=== PATIENT | female | born 2000 | race African-American/Black ===

== ENCOUNTER 2018-04-20 00:36 | Observation (INO) | payer BC ==
[2018-04-20] MEDS ORDERED: Lidocaine 2% MPF 10 ML AMP (For Epidural Use) ONE (01:18)
[2018-04-20] MEDS ORDERED: Gentamicin 80 MG/2 ML VIAL ONE (02:34)
[2018-04-20] MEDS ORDERED: CEFAZOLIN 2 GM/50 ML BAG ONE (02:34)
[2018-04-20 02:40] LABS: #Basophils 0.2 thou/uL (0.0-0.2); #Eosinphils 0.1 thou/uL (0.0-0.7); #Lymphocytes 2.9 thou/uL (1.20-3.40); #Monocytes 0.7 thou/uL (0.11-0.59); #Neutrophils 8.4 thou/uL (1.40-6.50); %Basophils 1.3 % (0.0-1.0); %Eosinophils 1.2 % (0.0-10.0); %Lymphocytes 23.5 % (28.0-48.0); %Monocytes 5.9 % (0.0-4.0); %Neutrophils 68.1 % (31.0-61.0); Mean Corpuscular HGB CONC 33.7 g/dL (32.0-36.0); Mean Corpuscular Hemoglobin 28.4 pg (25.0-35.0); Mean Corpuscular Volume 84.2 fL (78.0-98.0); Platelet Count 177 thou/uL (130-400); RBC Distribution Width 11.8 % (11.5-14.5); Red Blood Cell (RBC) Count 5.27 mill/uL (4.00-5.20); White Blood Cell (WBC) Count 12.3 thou/uL (4.8-10.8)
[2018-04-20] MEDS ORDERED: Gentamicin Sulfate 80 MG in Premix Bag 1 BAG IVPB SCH (02:45)
[2018-04-20 02:47] LABS: Bilirubin Negative (Negative); Blood, Urine Negative (Negative); Clarity CLEAR (Clear); Glucose, Urine (Dipstick) Negative (Negative); Leukocyte Trace (Negative); Nitrite Negative (Negative); Protein, Urine (Dipstick) Negative (Neg-Trace); Specific Gravity, Urine 1.016 (1.002-1.036); Urobilinogen 0.2 mg/dL (0.2-1.0)
[2018-04-20 02:49] LABS: Bacteria/HPF None Seen HPF (None Seen); Hyaline Casts/LPF 0-3 HYALINE CAST LPF (0-3 Hyaline); Pathc Cast-AUWi Flag 0.14 (0-2.49); RBC/HPF 0-3 HPF (0-3); Squamous Epithelial 0-3 HPF (0-3)
[2018-04-20 03:01] LABS: BHCG - Serum Negative (NEGATIVE); Pregs Control Background? CLEAR/WHITE (CLR/WHITE); Pregs Control Bar Appear? YES (CONTROL BAR)
[2018-04-20 03:03] LABS: Anion Gap 13 mmol/L (10-20); BUN (Urea Nitrogen) 8 mg/dL (8.4-21.0); Calc. Creatinine Clearance 0 mL/min (70-130); Calcium 9.8 mg/dL (7.8-10.44); Carbon Dioxide 26 mmol/L (22-29); Chloride 104 mmol/L (98-107); Estimated GFR-MDRD 80; Glucose 104 mg/dL (70-105); Potassium 3.7 mmol/L (3.5-5.1); Sodium 139 mmol/L (136-145)
[2018-04-20] MEDS ORDERED: Ondansetron ODT 4 MG TAB SL PRN (03:48)
[2018-04-20] MEDS ORDERED: Ondansetron PF 4 MG/2 ML Vial IVP PRN (03:48)
[2018-04-20] MEDS ORDERED: Acetaminophen 325 MG TAB PO PRN (03:48)
[2018-04-20] MEDS ORDERED: Morphine 4 MG/ML VIAL SLOW IVP PRN (03:57)
[2018-04-20] MEDS ORDERED: Sodium Chloride 0.9% 1,000 ML IV SCH (04:00)
[2018-04-20] MEDS ORDERED: HYDROcodone/Acetaminophen 7.5/325 mg Tablet PO PRN (04:00)
[2018-04-20 04:48] VITALS: BMI 28.2
[2018-04-20] MEDS: Ketorolac Tromethamine 30 MG/ML VIAL IVP SCH ×3 (05:23→21:37)
[2018-04-20] MEDS: CEFAZOLIN 2 GM/50 ML-DEXTROSE 2 GM in Premix Bag 1 BAG IVPB SCH ×3 (08:44→21:37)
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
[2018-04-20] MEDS: Gentamicin Sulfate 80 MG in Premix Bag 1 BAG IVPB SCH ×2 (11:57→18:24)
[2018-04-20] MEDS ORDERED: Lidocaine 1% PF 5 ML VIAL ONE (14:46)
[2018-04-20] MEDS ORDERED: PROPOFOL 200 MG/20 ML VIAL ONE (14:46)
[2018-04-20] MEDS ORDERED: ePHEDrine/0.9% NaCl/PF SYRINGE 50 mg/10 ml ONE (14:46)
[2018-04-20] MEDS ORDERED: Dexamethasone 20 MG/5 ML VIAL ONE (14:46)
[2018-04-20] MEDS ORDERED: Ondansetron PF 4 MG/2 ML Vial ONE (14:46)
[2018-04-20] MEDS ORDERED: PHENYLEPHRINE-NS 100 MCG/ML 10 ML SYRINGE ONE (14:46)
[2018-04-20] MEDS ORDERED: Fentanyl 100 MCG/2 ML VIAL ONE ×2 (18:46→20:35)
[2018-04-20] MEDS ORDERED: Bacitracin Zinc Ointment 30 gm TUBE ONE (18:57)
[2018-04-20] MEDS ORDERED: Bupivacaine PF 0.5% 30 ML VIAL ONE (18:57)
[2018-04-20] MEDS ORDERED: Promethazine HCl 25 MG/ML VIAL IM PRN (20:27)
[2018-04-20] MEDS ORDERED: Promethazine HCl 25 MG/ML VIAL SLOW IVP PRN (20:27)
[2018-04-20] MEDS ORDERED: Ondansetron HCl/PF 4 MG/2 ML Vial IVP PRN (20:27)
[2018-04-21] MEDS: Ketorolac Tromethamine 30 MG/ML VIAL IVP SCH (05:29)
[2018-04-21 12:07] VITALS: BP 120/76; TEMP 98.3
--- NOTE | 2018-04-21 19:07 | OP ---
DATE OF PROCEDURE: 04/20/2018 ANESTHESIA: [place] anesthesia under general LMA technique augmented by 20 mL of 0.5% Marcaine block, small finger metacarpal level and 10 mL at the donor site. PREOPERATIVE DIAGNOSES: 1. Right small finger open fracture distal phalanx. 2. Right small finger nevertheless with a full thickness skin loss of 1.5 x 1 cm. POSTOPERATIVE DIAGNOSES: 1. Right small finger open fracture distal phalanx. 2. Right small finger nevertheless with a full thickness skin loss of 1.5 x 1 cm. PROCEDURES PERFORMED: 1. Debridement of material associated with open fracture. 2. Open treatment of distal phalanx fracture. 3. Nail bed repair. 4. Full-thickness skin graft from ipsilateral forearm, 1.5 x 1 cm. TOURNIQUET TIME: 27 minutes. BLOOD LOSS: 10 mL. DESCRIPTION OF PROCEDURE: After successful anesthesia listed above, the limb was prepped and draped. The patient had time-out done appropriately. We then gave the injection at small finger metacarpophalangeal joint level and over the area of the suspected graft. We measured the wound and it was approximately 1.3 cm outlined at the antecubital fossa for later closure. We then debrided the material associated with open fracture using small curette, Paz type retractor to dissect out two fragments, and we used irrigation Pulsavac 3 L normal saline. It was excisional technique. It did include bone, but there was no gross infection or contamination. After we performed this debridement and irrigation, we then dissected the fat, moving fat 4 x 1.5 mm to completely cover the bone edge up to the nail bed for support. A longitudinal laceration was incorporated in the chromic and was used for the graft application. We went to the forearm antecubital fossa, harvested the graft as listed above, incised, thinned it, closed the donor site with a running 4-0 Monocryl, undyed and then interrupted simple sutures with 4-0 nylon. We then placed a 4-0 nylon bolster on the radioulnar aspect with a bolster suture incorporating the graft, did a running circumferential 6-0 chromic suture, which included the nail bed dorsally and brought the graft up to the nail bed and with excellent coverage of all exposed fat and tissue. No bone was exposed. We then placed a bacitracin Adaptic on the graft and the nail bed where we anticipated the repair cotton ball was bolstered with the suture as listed above and had excellent compression and the digit was pink when the tourniquet was deflated. We then had the patient leave the operating room with bulky dressing applied soft, covered with Coban, 4x4s, Adaptic, bacitracin, and the Kerlix, Kerlix covered with 4x4 at the donor site with 4-inch Damien wrap up to the distal third of the palm and forearm. The patient had no complications. Job ID: [id number]
== END 2018-04-21 12:55 | disposition home or self-care (01) ==
LOC: ERS 00:36 → SJJU 02:20
PROVIDERS: ADMIT Orthopaedic Surgery Hand Surgery; ATTEND Orthopaedic Surgery Hand Surgery
PROC: 0PBT0ZZ Excision of Right Finger Phalanx, Open Approach (ICD-10-PCS; principal; 2018-04-20)
PROC: 0HRQX7Z Replacement of Finger Nail with Autologous Tissue Substitute, External Approach (ICD-10-PCS; 2018-04-20)
PROC: 0HRFX73 Replacement of Right Hand Skin with Autologous Tissue Substitute, Full Thickness, External Approach (ICD-10-PCS; 2018-04-20)
DX: S62.636B Displaced fracture of distal phalanx of right little finger, initial encounter for open fracture (principal); W23.0XXA Caught, crushed, jammed, or pinched between moving objects, initial encounter
CPT/HCPCS: 64450; 80048; 81003; 81015; 84703; 85025; 96361; 96365; 96366; 96375; 96376; G0378; J0131; J0690; J1100; J1580; J1885; J2001; J2270; J2405; J2704; J3010; J3490; S0020

== ENCOUNTER 2018-06-05 11:13 | Emergency (ER) | payer BC ==
[2018-06-05 12:25] LABS: #Basophils 0.1 thou/uL (0.0-0.2); #Eosinphils 0.3 thou/uL (0.0-0.7); #Lymphocytes 2.8 thou/uL (1.20-3.40); #Monocytes 0.7 thou/uL (0.11-0.59); #Neutrophils 3.6 thou/uL (1.40-6.50); %Basophils 1.1 % (0.0-1.0); %Eosinophils 3.5 % (0.0-10.0); %Lymphocytes 37.1 % (28.0-48.0); %Monocytes 9.4 % (0.0-4.0); %Neutrophils 48.8 % (31.0-61.0); Hemoglobin 14.7 g/dL (12.0-16.0); Mean Corpuscular HGB CONC 33.3 g/dL (32.0-36.0); Mean Corpuscular Hemoglobin 28.6 pg (25.0-35.0); Mean Corpuscular Volume 85.8 fL (78.0-98.0); Mean Platelet Volume 9.7 fL (7.4-10.4); Platelet Count 163 thou/uL (130-400); RBC Distribution Width 11.8 % (11.5-14.5); Red Blood Cell (RBC) Count 5.15 mill/uL (4.00-5.20); White Blood Cell (WBC) Count 7.4 thou/uL (4.8-10.8)
[2018-06-05 12:49] LABS: ALT (SGPT) 9 U/L (8-55); AST (SGOT) 21 U/L (5-30); Alkaline Phosphatase 61 U/L (40-150); Anion Gap 13 mmol/L (10-20); BUN (Urea Nitrogen) 14 mg/dL (8.4-21.0); Bilirubin, Total 0.3 mg/dL (0.2-1.2); Calc. Creatinine Clearance 0 mL/min (70-130); Calcium 9.4 mg/dL (7.8-10.44); Carbon Dioxide 24 mmol/L (22-29); Chloride 107 mmol/L (98-107); Estimated GFR-MDRD 86; Globulin 3.7 g/dL (2.4-3.5); Glucose 85 mg/dL (70-105); Potassium 4.6 mmol/L (3.5-5.1); Protein, Total 7.7 g/dL (6.0-8.3); Sodium 139 mmol/L (136-145)
--- NOTE | 2018-06-05 12:54 | RAD ---
RIGHT LITTLE FINGER THREE VIEWS: HISTORY: Finger injury. FINDINGS: There is soft tissue and osseous laceration of the far tip of the distal phalanx. No fracture extend s to the base. No metallic vertebral bodies are apparent. IMPRESSION: Distal tuft right little finger injury, including ossific avulsion. POS: [place]
[2018-06-05] MEDS ORDERED: Ketorolac Tromethamine 30 MG/ML VIAL ONE (13:47)
== END 2018-06-05 14:12 | disposition home or self-care (01) ==
LOC: ERS 11:13
DX: G89.18 Other acute postprocedural pain (principal); M79.644 Pain in right finger(s); J45.909 Unspecified asthma, uncomplicated
CPT/HCPCS: 36415; 80053; 85025; 96372; J1885

== ENCOUNTER 2018-11-13 02:17 | Emergency (ER) | payer BC ==
[2018-11-13] MEDS ORDERED: Adacel (T-DAP) 0.5 ML SYRINGE ONE (02:24)
[2018-11-13] MEDS ORDERED: Lidocaine 1% w/Epinephrine 1:100K 20 ML VIAL ONE (02:24)
[2018-11-13] MEDS ORDERED: Bacitracin 1 PK ONE (03:53)
== END 2018-11-13 04:09 | disposition home or self-care (01) ==
LOC: ERS 02:17
DX: S01.412A Laceration without foreign body of left cheek and temporomandibular area, initial encounter (principal); S61.511A Laceration without foreign body of right wrist, initial encounter; J45.909 Unspecified asthma, uncomplicated; Y04.0XXA Assault by unarmed brawl or fight, initial encounter
CPT/HCPCS: 12053; 90471; 90715; J2001

== ENCOUNTER 2019-03-18 17:49 | Emergency (ER) | payer BC ==
[2019-03-18] MEDS ORDERED: Ketorolac Tromethamine 30 MG/ML VIAL ONE (18:14)
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
== END 2019-03-18 19:40 | disposition home or self-care (01) ==
LOC: ERS 17:49
DX: S43.101A Unspecified dislocation of right acromioclavicular joint, initial encounter (principal); S83.92XA Sprain of unspecified site of left knee, initial encounter; J45.909 Unspecified asthma, uncomplicated; V43.52XA Car driver injured in collision with other type car in traffic accident, initial encounter
CPT/HCPCS: 96372; J1885